=== PATIENT | female | born 1960 | race Caucasian/White ===

== ENCOUNTER 2025-01-04 06:30 | Day surgery (SDC) | payer MEDICARE, MEDICAID, SELFPAY ==
--- NOTE | 2025-01-03 06:50 | EXP.HP ---
History of Present Illness *Admission Date: 01/04/25 *History of present illness: Mrs. Barnard is a 64-year-old female who is here for diagnostic colonoscopy. The patient does report intermittent right lower quadrant abdominal pain, bloating and bowel irregularity. She does have constipation that alternates with diarrhea and states that she will only vacillate between [place] score 1 and Chicago score 7 and nothing in between. Her stools are either hard and very lumpy or watery. She does report incomplete defecation with excessive wiping. She does get these intermittent bouts of severe right lower quadrant pain. She has seen gastroenterology in the past and was previously followed by Dr. Amber Friedman in [place] and later followed by her predecessor Dr. Meenu Ram. She was more impressed by the former and had been told to ambulate more and eat more fiber by Dr. Friedman. That did help some. She had been placed on Linzess with Dr. Friedman and this only resulted in diarrhea. She was told to take Citrucel by Dr. Ram and this did not do anything. She was later told to take MiraLAX daily and she did not want to take a laxative daily because of what she had read. She went to [place] in October 2021 and had severe right lower quadrant abdominal pain and went to the emergency department ([facility]). She had a CAT scan and was told that she had a blockage between the large and small intestine. The surgeon told her that she would likely need exploratory laparotomy which she refused. They did do a colonoscopy but she states that they did not get up far enough and she had an upper endoscopy as well. They told her that she would need a PillCam. She was eventually given dicyclomine which she takes only on demand as needed when she gets the right lower quadrant pain and this does help to relieve the pain. She reports no rectal bleeding or weight loss. She has had the symptoms chronically. She does get intermittent nausea. The examination is deemed medically necessary for diagnostic colonoscopy. The patient has been seen, interviewed and examined prior to the procedure by both myself and the anesthesia provider. [facility] Disclaimer: The information contained in this section may have been updated after the patient was seen, as this information can be updated by other users. Medical History Urinary incontinence Migraine Hypertension Osteoporosis GERD without esophagitis Essential tremor Anxiety Hyperlipidemia Surgical History History of shoulder surgery History of nasal septoplasty History of hysterectomy History of cholecystectomy History of tonsillectomy History of tympanoplasty Family History Other Cancer Coronary artery disease Heart attack Kidney disease Stroke Social History Smoking Status: Never smoker alcohol intake: never substance use type: denies use current occupational status: retired Travel in the last 8 weeks?: None Have you lived/traveled outside US in past 30 days?: No Contact w/someone who lives/traveled outside US past 30 days?: No Exposure to someone with infectious disease in past 14 days?: No Do you have a fever (greater than 100.4 F or 38 C)?: No Have you tested positive for COVID-19?: No Exposed to someone with COVID-19 in past 14 days?: No Do you have a sore throat?: No Do you have a cough?: No Do you have any weakness?: No Are you experiencing any nausea/vomitting?: No Do you have any diarrhea?: No Are you experiencing any unusual bleeding?: No Do you have any muscle aches/pain?: No Do you have any abdominal pain?: No Are you experiencing loss of taste or smell?: No Other Medical History Have you received the Pneumonia Vaccine: No Review of Systems Review of Systems Review of systems (narrative): Negative *Cardiovascular Comments: Negative *Gastrointestinal Comments: Negative *Genitourinary Comments: Negative *Musculoskeletal Comments: Negative *Neurologic Comments: Negative Meds Home Medications and Allergies Home Medications ?Medication ?Instructions ?Recorded ?Confirmed ?Type aspirin 325 mg tablet 325 mg PO DAILY 10/10/24 01/04/25 History buspirone 15 mg tablet 15 mg PO BID 10/10/24 01/04/25 History cetirizine 10 mg tablet 10 mg PO DAILY PRN allergies 10/10/24 01/04/25 History famotidine 40 mg tablet 40 mg PO DAILY 10/10/24 01/04/25 History hydroxyzine HCl 25 mg tablet 25 mg PO DAILY 10/10/24 01/04/25 History imipramine HCl 10 mg tablet 30 mg PO BID 10/10/24 01/04/25 History pantoprazole 40 mg tablet,delayed 40 mg PO DAILY 10/10/24 01/04/25 History release (Protonix) potassium chloride 20 mEq 20 meq PO DAILY 10/10/24 01/04/25 History tablet,extended release (K-Tab) pramipexole 0.25 mg tablet 0.25 mg PO DAILY 10/10/24 01/04/25 History propranolol 20 mg tablet 20 mg PO TID 10/10/24 01/04/25 History rosuvastatin 10 mg tablet 10 mg PO DAILY 10/10/24 01/04/25 History sertraline 100 mg tablet 200 mg PO DAILY 10/10/24 01/04/25 History topiramate 100 mg tablet (Topamax) 200 mg PO BID 10/10/24 01/04/25 History vibegron 75 mg tablet (Gemtesa) 75 mg PO DAILY 10/10/24 01/04/25 History New Prescriptions to Start Prescriptions: Allergies Allergy/AdvReac Type Severity Reaction Status Date / Time Penicillins Allergy Hives Verified 01/04/25 07:27 Sulfa (Sulfonamide Allergy Nausea Verified 01/04/25 07:27 Antibiotics) adhesive tape AdvReac Hives Verified 01/04/25 07:27 Exam *Routine HEENT Exam Head: Present normocephalic Eye: Present EOMI and PERRL ENT: Present mucous membranes moist *Routine Neck Exam Neck: Present supple *Routine Respiratory Exam Respiratory: Present CTA bilaterally *Routine Cardiovascular Exam Cardiovascular: Present RRR *Routine Abdominal Exam Abdominal: Present soft and normoactive bowel sounds; Absent tenderness *Routine Rectal Exam Rectal:: deferred *Routine Genitalia Exam Genitalia:: deferred *Routine Extremities Exam Extremities: Absent cyanosis, clubbing or edema *Routine Skin Exam Skin: Present warm; Absent rash *Routine Neurological Exam Neurological: Present alert and oriented X3 Assessment and Plan *Assessment and plan (1) Right lower quadrant abdominal pain: Status: Acute Category: Medical Code(s): R10.31 - Right lower quadrant pain (2) Incomplete defecation: Status: Acute Category: Medical Code(s): R15.0 - Incomplete defecation (3) Bloating: Status: Acute Category: Medical Code(s): R14.0 - Abdominal distension (gaseous) (4) Irritable bowel syndrome with alternating bowel habits: Status: Acute Category: Medical Code(s): K58.2 - Mixed irritable bowel syndrome Plan A/P: 1. Right lower quadrant abdominal pain, bloating and incomplete defecation is the preprocedural diagnosis. The patient does have mixed and alternating bowel movements with constipation alternating with diarrhea. The patient will be anesthetized/sedated using MAC sedation. The patient has been seen and examined. Cardiac and lung assessment prior to the examination is stable. Proceed with planned diagnostic colonoscopy.
--- NOTE | 2025-01-04 06:54 | P.PCN_ITS ---
[facility] Procedure Note Date: 01/04/25 Time: 08:20 Procedure Note:: Colonoscopy Procedure Report: Colonoscopy Endoscopist: Ludwig Figueroa II, MD Referring physician: Carlos Swartz M.D. Date of Procedure: January 04, 2025 Equipment: Olympus [id number] adult colonoscope Sedation: MAC sedation Indication: Mrs. Barnard is a 64-year-old female who is here for diagnostic colonoscopy. The patient does report intermittent right lower quadrant abdominal pain, bloating and bowel irregularity. She does have constipation that alternates with diarrhea and states that she will only vacillate between Tra[place] score 1 and Traill score 7 and nothing in between. Her stools are either hard and very lumpy or watery. She does report incomplete defecation with excessive wiping. She does get these intermittent bouts of severe right lower quadrant pain. She has seen gastroenterology in the past and was previously followed by Dr. Amber Friedman in [place] and later followed by her predecessor Dr. Meenu Ram. She was more impressed by the former and had been told to ambulate more and eat more fiber by Dr. Friedman. That did help some. She had been placed on Linzess with Dr. Friedman and this only resulted in diarrhea. She was told to take Citrucel by Dr. Ram and this did not do anything. She was later told to take MiraLAX daily and she did not want to take a laxative daily because of what she had read. She went to [place] in October 2021 and had severe right lower quadrant abdominal pain and went to the emergency department ([facility]). She had a CAT scan and was told that she had a blockage between the large and small intestine. The surgeon told her that she would likely need exploratory laparotomy which she refused. They did do a colonoscopy but she states that they did not get up far enough and she had an upper endoscopy as well. They told her that she would need a PillCam. She was eventually given dicyclomine which she takes only on demand as needed when she gets the right lower quadrant pain and this does help to relieve the pain. She reports no rectal bleeding or weight loss. She has had the symptoms chronically. She does get intermittent nausea. Since her last visit, the patient did use the MiraLAX plus Metamucil and did not go for several days then eventually had movement. Due to her travel, she has not instituted this daily. She does have upcoming tympanoplasty surgery. The examination is deemed medically necessary for diagnostic colono scopy. Procedure: Prior to the procedure, a history and physical exam was performed, and patient's medications and allergies were reviewed. The risks, benefits and alternatives of the sedation and procedure were discussed with the patient. All questions were answered and informed consent was obtained. The patient was brought to the procedure room. Patient identification and proposed procedure were verified by the physician and the nurse. The patient was placed in a left lateral decubitus position and the scope was passed under direct vision. Throughout the procedure, the patient's blood pressure, pulse, and oxygen saturations were monitored continuously. The colonoscopy was accomplished without difficulty. The patient tolerated the procedure well. Findings: On digital rectal examination there was normal rectal tone. There were no external hemorrhoids. The colonoscope was introduced through the anal canal to the rectum and advanced to the cecum. The ileocecal valve and appendiceal orifice were identified. The scope was advanced a short distance into the ileum which appeared grossly normal. The scope was then withdrawn into the colon. The cecum, ascending, transverse, descending, sigmoid and rectum were grossly normal. There were no mucosal abnormalities identified. There was some angulation at the hepatic flexure. Upon retroflexion within the rectum there were grade 1-2 internal hemorrhoids. The preparation was excellent throughout with Trafford Preparation Score of 9. The cecal time was 12 minutes. Impression: 1. 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 She also has some outlet dysfunction constipation. She does not have any ileal stricturing or stenosis. I will discuss the findings with the patient and family. The patient will not require screening/surveillance colonoscopy for 10 years.
[2025-01-04 07:23] VITALS: BMI 26.3
[2025-01-04 07:38] VITALS: BP 129/81; PULSE 71; RESP 18; TEMP 36.6; O2SAT 100
[2025-01-04] MEDS: LACTATED RINGERS 1000ML 1,000 ML 50 ML IV (07:45)
--- NOTE | 2025-01-04 07:47 | P.PNANES_ITS ---
[facility] Disclaimer: The information contained in this section may have been updated after the patient was seen, as this information can be updated by other users. Medical History Urinary incontinence Migraine Hypertension Osteoporosis GERD without esophagitis Essential tremor Anxiety Hyperlipidemia Surgical History History of shoulder surgery History of nasal septoplasty History of hysterectomy History of cholecystectomy History of tonsillectomy History of tympanoplasty Family History Other Cancer Coronary artery disease Heart attack Kidney disease Stroke Social History Smoking Status: Never smoker alcohol intake: never substance use type: denies use current occupational status: retired Travel in the last 8 weeks?: None Have you lived/traveled outside US in past 30 days?: No Contact w/someone who lives/traveled outside US past 30 days?: No Exposure to someone with infectious disease in past 14 days?: No Do you have a fever (greater than 100.4 F or 38 C)?: No Have you tested positive for COVID-19?: No Exposed to someone with COVID-19 in past 14 days?: No Do you have a sore throat?: No Do you have a cough?: No Do you have any weakness?: No Are you experiencing any nausea/vomitting?: No Do you have any diarrhea?: No Are you experiencing any unusual bleeding?: No Do you have any muscle aches/pain?: No Do you have any abdominal pain?: No Are you experiencing loss of taste or smell?: No [facility] Anesthesia Checklist Patient Identification Patient Identification: Arm Band and Verbal (Name & ) Structural Data Admitted From: Home Planned Operative Procedure/s: colonscopy Consent for Planned Operative Procedure(s) Verified: Yes Verified Documents: Surgical Consent and History and Physical NPO Status Verified Time NPO: 00:00 Additional verifications Anesthesia Reactions: No Previous Colonoscopy: Yes Airway Assessment Mallampati Score:: Class II Dentition: Good Dentition Neurological Assessment Level of Consciousness: Awake, Alert and Appropriate Hx Seizures: No Numbness or tingling in extremities: No Anesthesia Plan Anesthesia Risk discussed: Yes Anesthesia Plan: Verified ASA Class: II Anesthesia Type: MAC
[2025-01-04 08:22] VITALS: BP 99/79; PULSE 72; RESP 18; TEMP 36.4; O2SAT 100
[2025-01-04 08:32] VITALS: BP 103/68; PULSE 68; O2SAT 97
[2025-01-04 08:42] VITALS: BP 114/79; PULSE 68; RESP 20; O2SAT 100
[2025-01-04 08:52] VITALS: BP 107/68; PULSE 70; O2SAT 98
== END 2025-01-04 08:52 | disposition home or self-care (01) ==
PROVIDERS: PCP Internal Medicine; Visit Provider Internal Medicine Gastroenterology
PROC: 0DJD8ZZ Inspection of Lower Intestinal Tract, Via Natural or Artificial Opening Endoscopic (ICD-10-PCS; CPT 45378; principal; 2025-01-04 08:00)
DX: K64.0 First degree hemorrhoids (principal); K64.1 Second degree hemorrhoids; K58.2 Mixed irritable bowel syndrome; K59.00 Constipation, unspecified; I10 Essential (primary) hypertension; E78.5 Hyperlipidemia, unspecified; Z79.82 Long term (current) use of aspirin; Z88.0 Allergy status to penicillin; Z88.2 Allergy status to sulfonamides; Z90.49 Acquired absence of other specified parts of digestive tract; Z90.710 Acquired absence of both cervix and uterus
CPT/HCPCS: 45378; J2003; J2704; J7120